=== PATIENT | female | born 1970 | race Caucasian/White ===

== ENCOUNTER 2016-08-25 08:09 | Outpatient (CLI) | payer BC ==
[2016-08-25 08:49] LABS: Hemoglobin A1c 4.6 % (4.0-6.0)
[2016-08-25 09:24] LABS: ALT (SGPT) 15 U/L (0-55); AST (SGOT) 15 U/L (5-34); Albumin 4.1 g/dL (3.5-5.0); Alkaline Phosphatase 68 U/L (40-150); Anion Gap 14 mmol/L (10-20); BUN (Urea Nitrogen) 12 mg/dL (7.0-18.7); Bilirubin, Total 0.5 mg/dL (0.2-1.2); Calc. Creatinine Clearance 0 mL/min (70-130); Carbon Dioxide 22 mmol/L (22-29); Cardiac Risk 4.3 (Less than 4.5); Chloride 105 mmol/L (98-107); Cholesterol 186 mg/dL (< 200 Desired); Estimated GFR-MDRD 80; Globulin 2.6 g/dL (2.4-3.5); Glucose 86 mg/dL (70-105); HDL Cholesterol 43 mg/dL (>60 Neg Risk); LDL Cholesterol, Calculated 121 mg/dL; Potassium 4.5 mmol/L (3.5-5.1); Protein, Total 6.7 g/dL (6.0-8.3); Sodium 136 mmol/L (136-145); Triglycerides 108 mg/dL (Less than 150)
[2016-08-25 09:29] LABS: #Basophils 0.1 thou/uL (0.0-0.2); #Eosinphils 0.2 thou/uL (0.0-0.7); #Lymphocytes 2.2 thou/uL (1.20-3.40); #Monocytes 0.6 thou/uL (0.11-0.59); #Neutrophils 4.3 thou/uL (1.40-6.50); %Basophils 1.2 % (0.0-1.0); %Eosinophils 2.7 % (0.0-10.0); %Lymphocytes 29.3 % (21.0-51.0); %Monocytes 7.7 % (0.0-10.0); %Neutrophils 59.2 % (42.0-75.0); Hemoglobin 13.3 g/dL (12.0-16.0); Mean Corpuscular Hemoglobin 29.9 pg (27.0-31.0); Mean Corpuscular Volume 90.5 fl (81.0-99.0); Mean Platelet Volume 6.2 fL (7.4-10.4); Platelet Count 292 thou/uL (130-400); Red Blood Cell (RBC) Count 4.46 mill/uL (4.20-5.40); White Blood Cell (WBC) Count 7.3 thou/uL (4.8-10.8)
[2016-08-25 09:40] LABS: Thyroid Stimulating Hormone 1.4746 uIU/mL (0.35-4.94)
[2016-08-25 10:57] LABS: Bilirubin Negative (Negative); Blood, Urine Trace (Negative); Clarity Clear (Clear); Glucose, Urine (Dipstick) Negative (Negative); Leukocyte Negative (Negative); Nitrite Negative (Negative); Protein, Urine (Dipstick) Negative (Neg-Trace); Urobilinogen 0.2 mg/dL (0.2-1.0); pH, Urine 6.5 (5.0-9.0)
[2016-08-25 11:00] LABS: RBC/HPF 0-3 HPF (0-3)
[2016-08-25 12:06] LABS: Vitamin D, 25 Hydroxy 16.9 ng/mL (> 30.0)
== END 2016-08-25 08:10 | disposition home or self-care (01) ==
LOC: MADLABBHPM 08:09
PROVIDERS: ATTEND Family Medicine
DX: Z00.00 Encounter for general adult medical examination without abnormal findings (principal)
CPT/HCPCS: 36415; 80053; 80061; 81001; 82306; 83036; 84443; 85025

== ENCOUNTER 2018-01-10 09:19 | Outpatient (CLI) | payer OTHER ==
--- NOTE | 2018-01-10 09:51 | RAD ---
LEFT TIBIA AND FIBULA TWO VIEWS: History: Pain after jogging. FINDINGS: No signs of fracture. No bony periosteal change that would suggest any type of stress type reaction. IMPRESSION: Unremarkable left tibia and fibula POS: TPC
--- NOTE | 2018-01-10 10:21 | RAD ---
LEFT KNEE FOUR VIEWS: HISTORY: Knee pain after jogging. FINDINGS: There is suggestion of some medial compartment narrowing. Small patellofemoral spurs are seen. No j oint effusion or fracture. IMPRESSION: 1. No acute findings. 2. Minimal arthritic changes of the knee. POS: TPC
== END 2018-01-10 09:20 | disposition home or self-care (01) ==
LOC: MADRAD 09:19
PROVIDERS: ATTEND Family Medicine
DX: M25.562 Pain in left knee (principal); M79.605 Pain in left leg; M17.12 Unilateral primary osteoarthritis, left knee

== ENCOUNTER 2020-03-24 10:53 | Outpatient (CLI) | payer OTHER, SELFPAY ==
--- NOTE | 2020-03-24 11:11 | RAD ---
TWO VIEW CHEST: HISTORY: Chest pain. FINDINGS: Lungs are clear. No infiltrate or vascular congestion. Heart and mediastinum unremarkable. Osseous structures unremarkable. IMPRESSION: No acute finding. POS: OFF
== END 2020-03-24 10:54 | disposition home or self-care (01) ==
LOC: MADLABBHPM 10:53
PROVIDERS: ATTEND Family Medicine
DX: R07.89 Other chest pain (principal)
CPT/HCPCS: 71046